=== PATIENT | female | born 1965 | race Caucasian/White ===

== ENCOUNTER 2017-12-13 08:31 | Outpatient (CLI) | payer BC | END 2017-12-13 08:32 | disposition home or self-care (01) | LOC: BICRAD 08:31 | PROVIDERS: ATTEND Family Medicine | DX: M25.532 Pain in left wrist (principal) ==

== ENCOUNTER 2018-01-20 13:53 | Outpatient (CLI) | payer BC | END 2018-01-20 13:54 | disposition home or self-care (01) | LOC: BICMAMMO 13:53 | PROVIDERS: ATTEND Family Medicine | DX: Z12.31 Encounter for screening mammogram for malignant neoplasm of breast (principal) | CPT/HCPCS: 77063; 77067 ==

== ENCOUNTER 2018-11-09 00:15 | Outpatient (CLI) | payer BC ==
[2018-11-09 14:44] LABS: #Eosinphils 0.2 thou/uL (0.0-0.7); #Lymphocytes 1.3 thou/uL (1.20-3.40); #Monocytes 0.6 thou/uL (0.11-0.59); %Basophils 0.2 % (0.0-1.0); %Eosinophils 2.6 % (0.0-10.0); %Lymphocytes 21.2 % (21.0-51.0); %Monocytes 10.4 % (0.0-10.0); %Neutrophils 65.6 % (42.0-75.0); Hemoglobin 14.4 g/dL (12.0-16.0); Mean Corpuscular HGB CONC 32.8 g/dL (32.0-36.0); Mean Corpuscular Hemoglobin 31.2 pg (27.0-31.0); Mean Corpuscular Volume 95.1 fL (78.0-98.0); Platelet Count 282 thou/uL (130-400); RBC Distribution Width 11.5 % (11.5-14.5); Red Blood Cell (RBC) Count 4.61 mill/uL (4.20-5.40); White Blood Cell (WBC) Count 6.2 thou/uL (4.8-10.8)
[2018-11-09 15:05] LABS: Anion Gap 11 mmol/L (10-20); BUN (Urea Nitrogen) 11 mg/dL (9.8-20.1); Calc. Creatinine Clearance 0 mL/min (70-130); Calcium 9.4 mg/dL (7.8-10.44); Carbon Dioxide 31 mmol/L (22-29); Chloride 103 mmol/L (98-107); Estimated GFR-MDRD 75; Glucose 86 mg/dL (70-105); Potassium 3.9 mmol/L (3.5-5.1); Sodium 141 mmol/L (136-145)
--- NOTE | 2018-11-11 16:36 | EKG ---
Test Reason : Blood Pressure : / mmHG Vent. Rate : 073 BPM Atrial Rate : 073 BPM P-R Int : 144 ms QRS Dur : 072 ms QT Int : 388 ms P-R-T Axes : 074 049 081 degrees QTc Int : 427 ms Normal sinus rhythm Normal ECG Confirmed by DR. Artur DANG ([id number]) on 11/11/2018 4:36:28 PM Referred By: IERO Confirmed By:DR. Artur DANG
== END 2018-11-09 00:16 | disposition home or self-care (01) ==
LOC: LABBT 00:15
PROVIDERS: ATTEND Orthopaedic Surgery
DX: Z01.818 Encounter for other preprocedural examination (principal); M75.102 Unspecified rotator cuff tear or rupture of left shoulder, not specified as traumatic
CPT/HCPCS: 80048; 85025; 93005; 93010

== ENCOUNTER 2018-11-11 06:48 | Day surgery (SDC) | payer BC ==
[2018-11-09 13:22] VITALS: BMI 26.0
[2018-11-11] MEDS ORDERED: Clindamycin/D5W 600 mg/50 ml Premix Bag ONE (07:19)
[2018-11-11] MEDS ORDERED: Fentanyl 100 MCG/2 ML VIAL ONE (07:40)
[2018-11-11] MEDS ORDERED: Midazolam HCl 2 mg/2 ml Vial ONE (07:40)
[2018-11-11] MEDS ORDERED: Scopolamine 1.5 mg/72 hour Patch ONE (07:54)
[2018-11-11] MEDS ORDERED: HYDROcodone/Acetaminophen 10/325 mg Tablet PO PRN ×2 (08:26)
[2018-11-11] MEDS ORDERED: traMADol HCl 50 MG TAB PO PRN ×2 (08:26)
[2018-11-11] MEDS ORDERED: Ketorolac Tromethamine 30 MG/ML VIAL IVP PRN (08:26)
[2018-11-11] MEDS ORDERED: Zolpidem Tartrate 5 MG TAB PO PRN (08:26)
[2018-11-11] MEDS ORDERED: Promethazine HCl 25 MG/ML VIAL IM PRN (08:26)
[2018-11-11] MEDS ORDERED: Ondansetron PF 4 MG/2 ML Vial IVP PRN (08:26)
[2018-11-11] MEDS ORDERED: Ropivacaine 0.2% 550 ML 550 ML NERVE BLCK SCH (08:26)
[2018-11-11] MEDS ORDERED: Fentanyl 100 MCG/2 ML VIAL IV PRN (08:27)
[2018-11-11] MEDS ORDERED: Bupivacaine/Epinephrine 0.25% 30 ML VIAL ONE (09:00)
--- NOTE | 2018-11-11 11:20 | OP ---
DATE OF PROCEDURE: 11/11/2018 PREOPERATIVE DIAGNOSES: Left shoulder impingement, biceps instability, and calcific tendinitis. POSTOPERATIVE DIAGNOSES: Left shoulder impingement, biceps instability, and calcific tendinitis. PROCEDURES PERFORMED: 1. Left shoulder arthroscopy with subacromial decompression. 2. Debridement and shaving of calcific tendinitis. 3. Open biceps tenodesis. KNOWLEDGE MANAGEMENT ADVISOR: Jerad Mccloud PA-C. BLOOD LOSS: 100. COMPLICATIONS: None. IMPLANTS: We used [employer] Bio[employer]posite Bio-Tenodesis screw that was 7 x 23. DISPOSITION: She went to recovery room in stable condition. ANESTHESIA: She did have a general anesthetic as well as a preoperative block. INDICATIONS: This is a 53-year-old female, who has been treating nonoperatively for number of months to include injections and therapy, and at this time, she continues to have significant pain. At this time, she opted to have surgery. DESCRIPTION OF PROCEDURE: After all appropriate consent forms were explained and signed, she was taken to the operative room and at this time was given general anesthetic. Once the local anesthesia was appropriate, rolled into the right lateral decubitus position with all bony prominences well padded. Axillary roll was placed beneath the right axilla and a beanbag was inflated to hold her in this position. The arm was taken through full range of motion and was found not to have any stiffness. We then hung the arm up with 10 pounds of traction in standard arthroscopic fashion. At this time, the left shoulder and upper extremity were prepped and draped in surgical fashion. Bony anatomical landmarks were drawn out and the subacromial space was infiltrated with Marcaine with epinephrine. Posterior portal was then established, and scope was placed into the glenohumeral joint. Anterior working portal was made using a needle localization technique. Diagnostic arthroscopy commenced. There were no loose bodies noted. Cartilage in the glenoid as well as the humeral head was normal. Subscap was intact. There were some significant adhesions from the undersurface of the cuff to the biceps tendon and further we visualize down the bicipital groove, the more adhesions and irritated tissue there was. The patient also has degenerative SLAP tear. At this time, a green cannula was placed anteriorly. A stitch was placed through the tendon using an 18-gauge needle and then the biceps was cut off the superior labrum using a SERFAS energy probe. Again, inferior and posterior labrum were intact and at this time, scope was repositioned into the subacromial space. Lateral working portal was made. Bursa was removed and at this time, we were then able to visualize an area toward the posterior 2/3rd of the cuff right at the muscle tendon junction. This was debrided and calcific material was removed. We then milked out a tremendous amount of paste-like calcium material and decompressed this area. I did then take an 18-gauge needle and just lightly used the tip of this in line with the fibers longitudinally to unroof some harder calcium based crystals. There was no full-thickness defects noted. At this time, a small subacromial decompression was performed using the SERFAS energy and the shaver. We then removed the scope and drained the shoulder. We then used a 15 blade to make an incision down through skin. Bovie was used to coagulate any brisk venous bleeding. Deltoid fascia was opened sharply and finger dissection was used to dissect the deltoid in line with its fibers to get down to the underlying transverse humeral ligament. This was opened up with the Bovie and the biceps tendon was brought into view. There was some significant bleeding from the venous structures that were irritated in the bicipital groove. This was coagulated and all the irritated tissue was removed. The biceps tendon was then sutured. The intra-articular portion was cut off. A pin was placed. We reamed with a 7-mm reamer to a depth of 25, and placed our 7 x 23 BioComposite Bio-Tenodesis screw in standard fashion. Sutures were tied over top of this, so could not back up. We then thoroughly irrigated and dried. We then closed our deltoid fascia with a running Vicryl, 2-0 Vicryl, and nylon sutures were then used on the skin. A bulky sterile dressing was applied. The patient was then awakened. She was taken to recovery room in stable condition. All counts were correct at the end of the case. She did receive preoperative IV antibiotics. Job ID: [id number]
[2018-11-11] MEDS ORDERED: Ropivacaine 0.5% HCl/PF (150 MG/30 ML VIAL) ONE (11:56)
[2018-11-11] MEDS ORDERED: Ropivacaine 0.2% HCl/PF (40 MG/20 ML VIAL) ONE (11:56)
[2018-11-11] MEDS ORDERED: PROPOFOL 200 MG/20 ML VIAL ONE (12:14)
[2018-11-11] MEDS ORDERED: Rocuronium Bromide 10 MG/ML (10ML VIAL) ONE (12:14)
[2018-11-11] MEDS ORDERED: Ketorolac Tromethamine 30 MG/ML VIAL ONE (12:14)
[2018-11-11] MEDS ORDERED: Lidocaine 1% PF 5 ML VIAL ONE (12:14)
[2018-11-11] MEDS ORDERED: Ondansetron PF 4 MG/2 ML Vial ONE (12:14)
[2018-11-11] MEDS ORDERED: ePHEDrine 50 MG/ML VIAL ONE (12:14)
[2018-11-11] MEDS ORDERED: Dexamethasone 20 MG/5 ML VIAL ONE (12:14)
[2018-11-11] MEDS ORDERED: Glycopyrrolate 0.2 MG/ML 5 ML SYRINGE ONE (12:14)
== END 2018-11-11 12:05 | disposition home or self-care (01) ==
LOC: SDC 06:48
PROVIDERS: ATTEND Orthopaedic Surgery
DX: M25.812 Other specified joint disorders, left shoulder (principal); M75.32 Calcific tendinitis of left shoulder; S43.432A Superior glenoid labrum lesion of left shoulder, initial encounter; Z88.1 Allergy status to other antibiotic agents; Z88.0 Allergy status to penicillin; Z88.2 Allergy status to sulfonamides; Z88.5 Allergy status to narcotic agent
CPT/HCPCS: A4306; C1713; J2250; J2795; J3010; J3490

== ENCOUNTER 2019-01-25 12:15 | Outpatient (CLI) | payer BC ==
--- NOTE | 2019-01-25 15:05 | MMO ---
Bilateral MAMMO Bilat Screen [facility]. CLINICAL HISTORY: Patient is 53 years old and is seen for screening. The patient has no family history of breast cancer. The patient has no personal history of cancer. VIEWS: The views performed were: bilateral craniocaudal with tomosynthesis and bilateral mediolateral oblique with tomosynthesis. FILMS COMPARED: The present examination has been compared to prior imaging studies performed at [facility] on 10/19/2014, 10/21/2015, 10/29/2016 and 01/20/2018. MAMMOGRAM FINDINGS: The breasts are heterogeneously dense, which could obscure a lesion on mammography. There are benign appearing calcifications seen in both breasts. There are no suspicious masses, suspicious calcifications, or new areas of architectural distortion. IMPRESSION: THERE IS NO MAMMOGRAPHIC EVIDENCE OF MALIGNANCY. A ROUTINE FOLLOW-UP MAMMOGRAM IN 1 YEAR IS RECOMMENDED. THE RESULTS OF THIS EXAM WERE SENT TO THE PATIENT. ACR BI-RADS Category 2 - Benign finding MAMMOGRAPHY NOTE: 1. A negative mammogram report should not delay a biopsy if a dominant of clinically suspicious mass is present. 2. Approximately 10% to 15% of breast cancers are not detected by mammography. 3. Adenosis and dense breasts may obscure an underlying neoplasm.
== END 2019-01-25 12:16 | disposition home or self-care (01) ==
LOC: BICMAMMO 12:15
PROVIDERS: ATTEND Family Medicine
DX: Z12.31 Encounter for screening mammogram for malignant neoplasm of breast (principal)
CPT/HCPCS: 77063; 77067

== ENCOUNTER 2022-04-02 07:53 | Outpatient (CLI) | payer BC | END 2022-04-02 07:54 | disposition home or self-care (01) | LOC: BICMAMMO 07:53 | PROVIDERS: ATTEND Family Medicine | DX: M81.0 Age-related osteoporosis without current pathological fracture (principal) | CPT/HCPCS: 77080 ==

== ENCOUNTER 2023-01-07 08:14 | Outpatient (CLI) | payer BC | END 2023-01-07 08:15 | disposition home or self-care (01) | LOC: BICMAMMO 08:14 | PROVIDERS: ATTEND Family Medicine | DX: Z12.31 Encounter for screening mammogram for malignant neoplasm of breast (principal) | CPT/HCPCS: 77063; 77067 ==

== ENCOUNTER 2024-01-31 15:05 | Outpatient (CLI) | payer BC | END 2024-01-31 15:06 | disposition home or self-care (01) | LOC: BICMAMMO 15:05 | PROVIDERS: ATTEND Family Medicine | DX: Z12.31 Encounter for screening mammogram for malignant neoplasm of breast (principal); M81.0 Age-related osteoporosis without current pathological fracture; M85.88 Other specified disorders of bone density and structure, other site | CPT/HCPCS: 77063; 77067; 77080 ==

== ENCOUNTER 2025-05-21 07:48 | Outpatient (CLI) | payer BC | END 2025-05-21 07:49 | disposition home or self-care (01) | LOC: BICMAMMO 07:48 | PROVIDERS: ATTEND Family Medicine | DX: M81.0 Age-related osteoporosis without current pathological fracture (principal); M85.89 Other specified disorders of bone density and structure, multiple sites | CPT/HCPCS: 77080 ==